=== PATIENT | male | born 1970 | race Native Hawaiian/Other Pacific Islander ===

== ENCOUNTER 2022-05-12 05:57 | Outpatient (CLI) | payer BC, SELFPAY ==
--- NOTE | 2022-05-12 | US_ITS ---
WS: [id number] RIGHT UPPER QUADRANT ULTRASOUND HISTORY: ABD PAIN COMPARISON: None available. Liver: 16.4 cm in length. Normal size liver. Mild heterogeneity throughout the liver. No mass identif ied. No bile duct dilatation. Heterogeneous appearance of liver is probably due to areas of hepatic s teatosis and sparing. No increased vascularity. Portal Vein: Normal hepatopetal flow with monophasic waveform. Gallbladder: Normally distended gallbladder with no stones or wall thickening. CBD: 0.3 cm Pancreas: Normal size and echogenicity. Right kidney: 12.8 cm in length. Normal size and echogenicity. No hydronephrosis or mass. Aorta and IVC: Unremarkable abdominal aorta and IVC. No ascites. US/US gall bladder [id number] IMPRESSION: 1. Normal gallbladder. 2. Normal size liver with focal areas of hepatic steatosis and focal fatty spa ring.
== END 2022-05-12 05:58 | disposition home or self-care (01) ==
LOC: RAD 05:58
PROVIDERS: PCP Nurse Practitioner Family; Visit Provider Nurse Practitioner Family
DX: K76.0 Fatty (change of) liver, not elsewhere classified (principal); R10.10 Upper abdominal pain, unspecified
CPT/HCPCS: 76705